=== PATIENT | male | born 1960 | race Caucasian/White ===

== ENCOUNTER 2017-09-02 16:48 | Inpatient (IN) | payer OTHER ==
[~2017-09-02] VITALS: Ht 182.9 cm; Wt 96.2 kg
[2017-09-02 00:15] VITALS: BP 148/86
[2017-09-02 10:20] VITALS: BP 203/120
[2017-09-02 11:00] VITALS: BP 185/112
--- NOTE | 2017-09-02 16:48 | NUR ---
SENT FROM URGENT CARE C/O DIFFUSE ABDOMINAL PAIN 8-10 DAYS, ALSO C/O HYPERTENSION PLACED ON MONITOR. AWAITING MD ORDER
--- NOTE | 2017-09-02 17:00 | NUR ---
LAC #18 IV ACCESS BLOOD SAMPLE COLLECTED SENT TO LAB
[2017-09-02] MEDS ORDERED: MORPHINE SULFATE INJ 2 MG/ML DISP.SYRIN IM ONE (17:30)
[2017-09-02] MEDS ORDERED: ONDANSETRON HCL 4 MG/5 ML SOLUTION PO ONE (17:30)
[2017-09-02 17:56] LABS: CALCIUM, SERUM 9.3 mg/dL (8.5-10.1); CREATININE 1.1 mg/dL (0.6-1.3); POTASSIUM 2.9 mmol/L (3.5-5.1)
[2017-09-02] MEDS ORDERED: MORPHINE SULFATE INJ 2 MG/ML DISP.SYRIN IV ONE (18:00)
[2017-09-02] MEDS ORDERED: ONDANSETRON HCL/PF 4 MG/2 ML VIAL IV ONE (18:00)
[2017-09-02 18:02] LABS: BILIRUBIN,DIRECT 0.1 mg/dL (0.0-0.2); BILIRUBIN,TOTAL 0.7 mg/dL (0.2-1.0); TOTAL PROTEIN, SERUM 7.5 g/dL (6.4-8.2)
[2017-09-02 18:04] LABS: TROPONIN I 0.022 ng/mL (0.00-0.056)
--- NOTE | 2017-09-02 18:04 | NUR ---
URINE SAMPLE COLLECTED SENT TO LAB
[2017-09-02] MEDS ORDERED: IOHEXOL-300 100 ML VIAL IV ONE (18:06)
[2017-09-02 18:07] LABS: APPEARANCE,URINE Clear (CLEAR); BILIRUBIN,URINE Negative (NEGATIVE); BLOOD, URINE Trace-lysed Ery/uL (NEGATIVE); COLOR,URINE Yellow (YELLOW); KETONES,URINE 15 (NEGATIVE); LEUKOCYTE ESTERASE ,URINE Negative (NEGATIVE); NITRITE, URINE Negative (NEGATIVE); PROTEIN,URINE 100 mg/dl (NEGATIVE); UGLUCOSE 500 MG/DL mg/dL (NEGATIVE); UROBILINOGEN,URINE 0.2 EU/dL (0.2)
--- NOTE | 2017-09-02 18:08 | NUR ---
PT TAKEN TO CT
[2017-09-02 18:10] LABS: BASOPHILS # (AUTO) 0.1 /CMM (0.0-0.2); BASOPHILS % (AUTO) 0.6 % (0.0-2.0); HEMATOCRIT 46 % (39-51); HEMOGLOBIN 15.6 g/dL (13.5-17.5); LYMPHOCYTES # (AUTO) 0.9 /CMM (0.8-4.8); LYMPHOCYTES % (AUTO) 6.9 % (20.0-44.0); MEAN CORPUSCULAR HGB CONC 34 g/dl (31.0-36.0); MEAN CORPUSCULAR VOLUME 86 fL (80-96); MONOCYTES # (AUTO) 0.9 /CMM (0.1-1.30); MONOCYTES % (AUTO) 6.8 % (2.0-12.0); NEUTROPHILS # (AUTO) 10.8 /CMM (1.8-8.9); NEUTROPHILS % (AUTO) 85.7 % (43.0-81.0); PLATELET COUNT (AUTO) 298 /CMM (150-450); RDW COEFFICIENT OF VARIATION 12.9 (11.5-15.0); RED BLOOD CELL COUNT(AUTO) 5.36 MIL/uL (4.5-6.0); WHITE BLOOD COUNT (AUTO) 12.7 K/uL (4.3-11.0)
[2017-09-02] MEDS ORDERED: ONDANSETRON HCL/PF 4 MG/2 ML VIAL ONE (18:17)
[2017-09-02] MEDS ORDERED: IOHEXOL-350 100 ML VIAL IV ONE (18:18)
[2017-09-02] MEDS ORDERED: MORPHINE SULFATE INJ 4 MG/ML DISP.SYRIN ONE (18:18)
[2017-09-02 18:23] LABS: INR 0.95 (0.85-1.15)
[2017-09-02 18:24] LABS: SQUAMOUS EPITHELIAL CELL,UR Few /HPF (None Seen)
[2017-09-02 18:25] LABS: BACTERIA,URINE Few /HPF (None Seen)
[2017-09-02] MEDS ORDERED: POTASSIUM CHLORIDE 20 MEQ TAB.PRT.SR PO ONE ×2 (18:59→19:00)
[2017-09-02] MEDS ORDERED: IV NS 0.9% 1,000 ML BAG IV ONE (19:00)
[2017-09-02] MEDS ORDERED: CLONIDINE HCL 0.1 MG TABLET ONE ×2 (19:17→22:42)
--- NOTE | 2017-09-02 19:26 | NUR ---
GAVE REPORT TO WEI FOR ALAN
[2017-09-02] MEDS ORDERED: CLONIDINE HCL 0.1 MG TABLET PO ONE (19:30)
[2017-09-02] MEDS ORDERED: lisinopril PO (19:56)
[2017-09-02] MEDS ORDERED: CLON0.1T PO (19:56)
[2017-09-02] MEDS ORDERED: metformin PO (19:56)
--- NOTE | 2017-09-02 20:11 | NUR ---
CALLED PHARMACY RE: MEDICATION ORDERED. PHARMACY TO BRING IT BACK.
--- NOTE | 2017-09-02 20:15 | NUR ---
RECEIVED A CALL FROM [facility]'S ELECTRICAL CONTROLS TECHNICIAN JEAN MARIE. FAXED OVER FACESHEET AND CLINICALS TO [phone].
[2017-09-02] MEDS ORDERED: HYDROMORPHONE INJ 2 MG/ML DISP.SYRIN ONE ×3 (20:16→22:45)
[2017-09-02] MEDS: LISINOPRIL (20MG) 20 MG TABLET PO SCH ×2 (20:30→20:35)
[2017-09-02] MEDS ORDERED: HYDROMORPHONE INJ 0.5 MG/0.5 ML SYRINGE IV ONE ×2 (20:30→22:00)
--- NOTE | 2017-09-02 20:59 | NUR ---
PT WAS PLACED ON 2L O2 VIA NC PT'S O2 SAT WAS 88%. PT IS NOW 94%.
--- NOTE | 2017-09-02 21:20 | NUR ---
RECEIVED A CALL FROM [facility] COVER REMOVER JEAN MARIE AND WAS INFORMED THAT THEIR MD, DR FREDERICK, DEEMED THE PT UNSTABLE AND HAS ALLOWED US TO ADMIT HERE. AUTHORIZATION #: [id number]
--- NOTE | 2017-09-02 21:24 | NUR ---
CALLED NURSING TELESALES CONSULTANT AND REQUESTED A MED SURG BED.
--- NOTE | 2017-09-02 21:24 | NUR ---
PAGED GI SHOW HOST/HOSTESS, DR HUMPHREY.
--- NOTE | 2017-09-02 21:47 | NUR ---
CALLING REPORT TO TELE NURSE. NURSE NOT ASSIGNED YET.
--- NOTE | 2017-09-02 21:47 | NUR ---
ASSIGNED TO MED SURG RM#: [id number], DX: SIGMOID VOLVULUS, ACCEPTING MD: DR CALERO
--- NOTE | 2017-09-02 21:57 | NUR ---
PT WAS C/O PAIN AND REC'D DILAUDID 1MG IVP BY BERTHA TELLO
--- NOTE | 2017-09-02 21:59 | NUR ---
CALLING REPORT TO BERTHA KRUEGER
--- NOTE | 2017-09-02 22:20 | NUR ---
ADMISSION NOTES: RECEIVED REPORT FROM WEI STONE, PT COMING IN FOR ABDOMINAL PAIN, WILL BE ADMITTED FOR SIGMOID VOLVULUS,UNDER DOCTOR HUMPHREY CALERO. PT BROUGHT TO THE UNIT VIA GURNEY, PT AMBULATORY, ON 2L OXYGEN VIA NC, RESPIRATION EVEN AND UNLABORED. PT STILL COMPLAINING OF 9/10 ABDOMINAL PAIN, AND NOTED BP TO BE ELEVATED. PT HAS LEFT AC G 18, ON HL, PATENT AND FLUSHING WELL. PT WILL UNDERGO FOR PROCEDURE PER GI DR HUMPHREY. ORIENTED PT TO UNIT POLICY AND HOURLY ROUNDING. VS TAKEN AND RECORDED. SKIN ASSESSMENT PERFORMED, AND NO SKIN ISSUES NOTED. INVENTORY OF BELONGINGS COMPLETED BY NATHANAEL PHAN. INFORMED PT ABOUT PROCEDURE RECOMMENDED BY , AND PT AGREE, PT MAKE DECISIONS FOR HIMSELF. SAFETY PRECAUTIONS FOR FALL INITIATED, CALL LIGHT IN REACH. WILL PREPARE PT FOR GI PROCEDURE.
--- NOTE | 2017-09-02 22:20 | NUR ---
DR. ARREGUIN WAS AT THE BEDSIDE AND IS NOW SPEAKING TO THE NURSING BRAKE LINING FINISHER ASBESTOS.
--- NOTE | 2017-09-02 22:25 | NUR ---
ADMITTING DR. CALERO. ORDERS IN CHART.
[2017-09-02 22:30] VITALS: BP 203/120
--- NOTE | 2017-09-02 22:30 | NUR ---
RN NOTES: PT WILL BE GOING FOR COLONOSCOPY AND POSSIBLE DECOMPRESSION, PT'S LAST MEAL WAS ON TUESDAY AT 0100PM, 09/01/17, PT CLAIMED HE ONLY HAD BP MEDS AND WATER DOWN IN ER, GI MD IN THE UNIT MADE AWARE OF PT'S LAST INTAKE, PER MD ITS OKAY. CONSENT SECURED, PT SIGNED THE PROCEDURE AND ANESTHESIA CONSENT, PT MAKE DECISION FOR HIMSELF.
--- NOTE | 2017-09-02 22:35 | NUR ---
RN NOTES: ASSISTED PT TO TE BATHROOM, PT URINATED.
--- NOTE | 2017-09-02 22:52 | NUR ---
PRN DILAUDID: PT C/O 11/28 ABDOMINAL PAIN STATED IT HURTS SO MUCH, PT'S BLOOD PRESSURE IS ELEVATED DESPITE GIVING BP MEDICATION, BP IS 203/118, GI MD IN THE UNIT, RELAYED THE CONDITION OF THE PT PT WILL BE GOING TO GI FOR COLONOSCOPY, PER GI MD RECOMMENDS TO GIVE PAIN MEDICATION NOW, AND THE BP WILL BE TAKEN CARE OF IN OR PT WILL BE PUT TO ANESTHESIA. PRN DILAUDID 1MG IVP ADMINISTERED TO THE PT AT THIS TIME.
[2017-09-02 23:00] VITALS: BP 185/112
[2017-09-02] MEDS ORDERED: HYDROMORPHONE INJ 2 MG/ML DISP.SYRIN IV PRN (23:00)
[2017-09-02] MEDS ORDERED: HYDROMORPHONE 1 MG/1 ML DISP.SYRIN IV PRN (23:00)
--- NOTE | 2017-09-02 23:00 | NUR ---
RN NOTES: TAKE PT DOWN TO GI LAB FOR COLONOSCOPY AND DECOMPRESSION,ACCOMPANIED BY ANOTHER RN AND INTRANET SPECIALIST, WITH GI MD. REPORT HANDED TO OR TECH. PT A/O X4, ON RA RESPIRATION EVEN AND UNLABORED, STILL C/O PAIN IN HIS ABDOMINAL AREA, MID.
[2017-09-02] MEDS ORDERED: ANESTHESIA TRAY IN PYXIS 1 EA TRAY MC ONE (23:01)
--- NOTE | 2017-09-02 23:45 | NUR ---
EXPLANATION FOR LATE ENTRY FOR DILAUDID ADMINISTRATION ALTHOUGH THIS MEDICINE WAS GIVEN AT 2252: PRN DILAUDID 1MG IVP ORDERED FOR PAIN PAIN MANAGEMENT, THIS MEDICATION WAS ADMINISTERED AT 2252 09/02/17,PT C/O 11/28 ABDOMINAL PAIN,AND STATED HE'S IN SO MUCH PAIN, GI MD IN THE UNIT RELAYED ABOUT CONDITION THIS PT IS GOING FOR OR/GI SOON FOR EMERGENCY COLONOSCOPY, AND PT'S BP ALSO ELEVATED, PER GI RECOMMENDATION TO GIVE DILAUDID NOW, AND THEY WILL TAKE CARE OF THE BP LATER WHEN PT ON ANESTHESIA. PT WAS SCANNED, AND MEDICATION WAS SCANNED, MEDICINE WAS GIVEN, EVEN FILLED UP PAIN ASSESSMENT, AND SAVED IT, FOR SOME REASON,ITS NOT DOCUMENTED IN EMAR, SO I PERSONALLY CONTACTED PHARMACY MOLD MAKING PLASTICS SHEETS SUPERVISOR, AND INFORMED ABOUT WHAT HAPPENED, ALL AROUND PRESSER ALSO AWARE OF WHAT HAPPENED, ALSO PER PHARMACY MOLD MAKING PLASTICS SHEETS SUPERVISOR, GIG, SHE STATED, SHE DOESN'T KNOW HOW TO FIX IT, PER RECOMMENDATION OF 8TH GRADE TEACHER GIL, TO PUT ANOTHER ORDER FOR DILAUDID, AND MAKE A LATE ENTRY AND SPECIFY THE REASON WHY ITS A LATE ENTRY. BUT OVERALL, PT RECEIVED THE MEDICINE AT 2252, FOR HIS COMPLAIN OF ABDOMINAL PAIN 11/28.
[2017-09-02 23:59] VITALS: BP 144/85
[2017-09-03] VITALS (14 sets, daily range): BP systolic 124–163; BP diastolic 66–92
[2017-09-03] MEDS ORDERED: DEXTROSE 50%-WATER 50 ML DISP.SYRIN IV PRN
[2017-09-03] MEDS ORDERED: LORAZEPAM INJ 2 MG/ML VIAL IV PRN
[2017-09-03] MEDS ORDERED: CLONIDINE HCL 0.1 MG TABLET PO PRN
[2017-09-03] MEDS ORDERED: HYDROMORPHONE INJ 2 MG/ML DISP.SYRIN IV PRN
[2017-09-03] MEDS ORDERED: ONDANSETRON HCL/PF 4 MG/2 ML VIAL IV PRN
--- NOTE | 2017-09-03 | NUR ---
RN NOTES: PT BROUGHT BACK TO THE UNIT VIA BED, ACCOMPANIED BY OR PERSONNEL LELO ROBERTSON. SHE EXPLAINED THAT PT WAS GIVEN PROPOFOL AND NOW ON 3L OXYGEN VIA NC, RESPIRATION EVEN AND UNLABORED, VS WILL BE TAKEN [id number], PT HAS RECTAL TUBE AND PER DR HUMPHREY TO LEAVE THE TUBE IT IS, AND DO NOT CONNECT TO ANY DRAINAGE BAG, JUST LEAVE IT TO GRAVITY. PT STATED HE'S PAIN IS A LOT BETTER NOW, ALSO BP A LOT BETTER, PLEASE SEE VS LOG, PER GI TO KEEP PT NPO UNTIL HE SEE THE PT IN AM. PT ALSO ON NS 750 LEFT IN THE BAG, 250 WAS GIVEN IN GI LAB. SAFETY PRECAUTIONS FOR FALL INITIATED, CALL LIGHT IN REACH, WILL CONTINUE TO MONITOR PT.
--- NOTE | 2017-09-03 00:05 | NUR ---
RN NOTES: ABDOMEN SOFT TO TOUCH NOW, HYPOACTIVE BOWEL SOUND HEARD UPON AUSCULTATION OF THE ABDOMEN, ABDOMINAL DISTENTION RESOLVED AFTER COLONOSCOPY AND RECTAL TUBE PLACEMENT
--- NOTE | 2017-09-03 00:10 | NUR ---
RN NOTES: PLACED PT ON CONTINUOS PULSE OX MONITORING, SPO2 96% ON 2.5L NC
[2017-09-03] MEDS: BLOOD SUGAR DIAGNOSTIC 1 EACH STRIP IN SCH ×4 (00:26→17:43)
--- NOTE | 2017-09-03 00:26 | NUR ---
PT BS IS 241 . NO COVERAGE AT THIS TIME SINCE PT ON NPO
--- NOTE | 2017-09-03 00:30 | NUR ---
RN NOTES: PT STATED HE HAS THE URGE TO PEE BUT NO URINE COMING OUT, INFORMED PT THIS MAY BE RELATED TO THE ANESTHESIA, STILL HAS EFFECT SINCE HE JUST HAD THE PROCEDURE AND JUST GOT BACK TO THE UNIT NOT TOO LONG AGO, NO ABDOMINAL DISTENTION NOTED, WILL CONTINUE MONITORING UO. ALSO PT C/O OF DRY MOUTH WHICH IS NORMAL SIDE EFFECT OF ANESTHESIA AND MEDICATIONS, PT IS NPO, PROVIDED WATER TO GURGLE AND SPIT OUT, PT STATE IT HELPED A LOT
[2017-09-03] MEDS: INSULIN REGULAR, HUMAN 100 UNIT/ML 3 ML VIAL SQ PRN ×3 (00:33→18:22)
--- NOTE | 2017-09-03 00:35 | NUR ---
RN NOTES: PER PROTOCOL WILL DO VS [id number] X1HR, THEN [id number] X2HR, THEN EVERY HOUR X4HRS, THEN ROUTINE
[2017-09-03] MEDS ORDERED: POTASSIUM CHLORIDE 10 MEQ/50 ML PREMIXED IVPB FOR PERIPHERAL LINE IV ONE (01:00)
--- NOTE | 2017-09-03 01:12 | NUR ---
RN NOTES FOR KCL REPLACEMENT THRU IV: ORDER IS TO GIVE 40MEQ KCL, 4BAG RECEIVED FROM OMNICELL, WILL ADMINISTER 1 BAG OF KCL AT 50ML/HR X1HR, EACH BAG FOR REPLACEMENT.
[2017-09-03] MEDS ORDERED: IV PREMIX 0.45% NS + KCL 1,000 ML IV ONE (01:41)
--- NOTE | 2017-09-03 02:03 | NUR ---
2ND BAG KCL: 2ND BAG OF POTASSIUM REPLACEMENT ADMINISTERED AT THIS TIME.
--- NOTE | 2017-09-03 02:30 | NUR ---
PT URINATED 250 ML USING URINAL, NO DYSURIA, DENIES ANY ABDOMINAL PAIN
--- NOTE | 2017-09-03 03:11 | NUR ---
3RD BAG OF KCL: ADMINISTERED 3RD BAG OF KCL AT THIS TIME
--- NOTE | 2017-09-03 03:30 | NUR ---
PT WITH NO C/O PAIN OR DISCOMFORT AT THIS TIME.
--- NOTE | 2017-09-03 04:12 | NUR ---
4TH BAG OF KCL REPLACEMENT: 4TH BAG OF KCL REPLACEMENT ADMINISTERED AT THIS TIME.
--- NOTE | 2017-09-03 05:26 | NUR ---
ADMINISTRATION OF IVF 1/2 NS +20MEQ KCL: NEW ORDER, OVERRIDE BY RN MAINTENANCE CARPENTER, UPON SCANNING, IOT SHOWS UNKNOWN NDC NUMBER, 5RIGHTS VERIFIED, ADMINISTERED THIS IVF NOW THAT KCL REPLACEMENT IS COMPLETED.
--- NOTE | 2017-09-03 05:34 | NUR ---
BS 182: BS 182, NO INSULIN GIVEN PT ON NPO,
[2017-09-03 06:33] LABS: BASOPHILS % (AUTO) 0.3 % (0.0-2.0); EOSINOPHILS % (AUTO) 0.1 % (0.0-6.0); HEMATOCRIT 39 % (39-51); HEMOGLOBIN 13.3 g/dL (13.5-17.5); LYMPHOCYTES # (AUTO) 1.7 /CMM (0.8-4.8); LYMPHOCYTES % (AUTO) 16.4 % (20.0-44.0); MEAN CORPUSCULAR HGB CONC 34 g/dl (31.0-36.0); MEAN CORPUSCULAR VOLUME 90 fL (80-96); MONOCYTES # (AUTO) 0.9 /CMM (0.1-1.30); MONOCYTES % (AUTO) 8.9 % (2.0-12.0); NEUTROPHILS # (AUTO) 7.7 /CMM (1.8-8.9); NEUTROPHILS % (AUTO) 74.3 % (43.0-81.0); PLATELET COUNT (AUTO) 247 /CMM (150-450); RDW COEFFICIENT OF VARIATION 14.2 (11.5-15.0); WHITE BLOOD COUNT (AUTO) 10.3 K/uL (4.3-11.0)
--- NOTE | 2017-09-03 06:45 | NUR ---
RN CLOSING NOTES: PT IN BED, AWAKE, A/O X3 FORGETFUL, ON 2L NC RESPIRATION EVEN AND UNLABORED, DENIES ANY PAIN OR DISCOMFORT AT THIS TIME, IV ACCESS PATENT AND FLUSHING WELL, INFUSING WITH 1/2 NS +20MEQ KCL AT 100ML/HR. RECTAL TUBE REMAINS IN PLACED, VIA GRAVITY ONLY. PT REMAINS NPO EXCEPT MEDS UNTIL SEEN BY GI TODAY. ON CONTINUOUS PULSE OXIMETER SPO2 RANGING 95%. VS REMAINS STABLE, NEEDS ATTENDED. WILL ENDORSE TO DAY RN FOR CONTINUITY OF CARE.
[2017-09-03 07:08] LABS: ALBUMIN 3.2 g/dL (3.4-5.0); BILIRUBIN,TOTAL 0.5 mg/dL (0.2-1.0); CALCIUM, SERUM 8.2 mg/dL (8.5-10.1); CREATININE 1.2 mg/dL (0.6-1.3); MAGNESIUM 2.4 mg/dL (1.8-2.4); PHOSPHORUS 4.5 mg/dL (2.5-4.9); POTASSIUM 3.7 mmol/L (3.5-5.1)
[2017-09-03] MEDS ORDERED: LISI40TA4 PO (07:08)
[2017-09-03] MEDS ORDERED: TAMS0.4C34 PO (07:08)
[2017-09-03] MEDS ORDERED: AMLO10TA6 PO (07:08)
[2017-09-03] MEDS ORDERED: METF-442 PO (07:08)
[2017-09-03] MEDS ORDERED: LISINOPRIL (20MG) 20 MG TABLET PO SCH (09:00)
--- NOTE | 2017-09-03 10:00 | NUR ---
MD IN AND RECTAL TUBE REMOVED.
[2017-09-03] MEDS ORDERED: AMLODIPINE BESYLATE 5 MG TABLET PO SCH (10:30)
[2017-09-03] MEDS ORDERED: PIPERACILLIN /TAZOBACTAM 3.375 G in IV D5W 100 ML IV SCH (11:00)
[2017-09-03] MEDS: PIPERACILLIN /TAZOBACTAM 3.375 G in IV D5W 50 ML IV SCH ×2 (11:59→17:52)
[2017-09-03] MEDS ORDERED: POLYETHYLENE GLYCOL 3350 17 GM POWD.PACK PO SCH (16:00)
--- NOTE | 2017-09-03 18:00 | NUR ---
DR. CALERO,DR. HUMPHREY IN DC ORDER GIVEN.DENIES PAIN,GIVEN ALL INSTRUCTIONS,HEP LOCK OUT. PRIOR TO DC HAD DOSE OF MIRALAX. AWARE TO RESTART HOME MEDS.HAD 3 BMS THIS SHIFT.
--- NOTE | 2017-09-03 19:00 | NUR ---
TAKEN TO LOBBY FOR DC PT. TO DRIVE HIMSELF HOME.DR. ABDIAS CALDWELL.
== END 2017-09-03 19:00 | disposition home or self-care (01) | DRG 346 ==
LOC: ER 16:49 → MED 22:05
PROVIDERS: ADMIT Internal Medicine; ATTEND Internal Medicine
PROC: 0D9N8ZZ Drainage of Sigmoid Colon, Via Natural or Artificial Opening Endoscopic (ICD-10-PCS; principal; 2017-09-02 23:17)
DX: K56.2 Volvulus (principal); K52.9 Noninfective gastroenteritis and colitis, unspecified; I10 Essential (primary) hypertension; E11.9 Type 2 diabetes mellitus without complications; Z79.84 Long term (current) use of oral hypoglycemic drugs; K42.9 Umbilical hernia without obstruction or gangrene; K59.00 Constipation, unspecified
CPT/HCPCS: 36415; 74018; 80048-TC; 80053-TC; 80076-TC; 81000-TC; 82962-TC; 83605-TC; 83690-TC; 83735-TC; 84100-TC; 84484-TC; 85025-TC; 85730-TC; 87081-TC; A4606; J1170; J1815; J2270; J2405; J2543; J2704; J3480; J3490; J7030; J7060; Q9967; Z7610

== ENCOUNTER 2018-01-09 12:29 | Inpatient (IN) | payer OTHER ==
[~2018-01-09] VITALS: Ht 182.9 cm; Wt 99.3 kg
[~2018-01-09 12:29] MED LIST: AMLO10TA6 PO; CLON0.1T PO; LISI40TA4 PO; METF-442 PO; TAMS0.4C34 PO
--- NOTE | 2018-01-09 12:30 | NUR ---
57 YEAR OLD MALE C/O WORSENING LOWER ABDOMINAL PAIN X 2 DAYS/ ALERT AND ORIENTED X4. BREATHING EVEN AND UNALBORED WITH NO DISTRESS NOTED. SKIN WARM TO TOUCH AND INTACT. PATIENT IS ABLE TO AMBULATE. AWAITING TO BE SEEN BY
[2018-01-09] MEDS ORDERED: IV NS 0.9% 1,000 ML BAG IV ONE (13:00)
[2018-01-09] MEDS ORDERED: ONDANSETRON HCL/PF 4 MG/2 ML VIAL IVP ONE (13:00)
[2018-01-09] MEDS ORDERED: MORPHINE SULFATE INJ 2 MG/ML DISP.SYRIN IV ONE ×2 (13:00→18:00)
[2018-01-09] MEDS ORDERED: ONDANSETRON HCL/PF 4 MG/2 ML VIAL ONE (13:05)
[2018-01-09] MEDS ORDERED: MORPHINE SULFATE INJ 4 MG/ML DISP.SYRIN ONE ×2 (13:05→18:03)
[2018-01-09 13:09] LABS: BASOPHILS # (AUTO) 0.1 /CMM (0.0-0.2); BASOPHILS % (AUTO) 0.6 % (0.0-2.0); EOSINOPHILS % (AUTO) 0.1 % (0.0-6.0); HEMATOCRIT 49 % (39-51); HEMOGLOBIN 15.7 g/dL (13.5-17.5); LYMPHOCYTES # (AUTO) 0.4 /CMM (0.8-4.8); LYMPHOCYTES % (AUTO) 4.4 % (20.0-44.0); MEAN CORPUSCULAR HGB CONC 32 g/dl (31.0-36.0); MEAN CORPUSCULAR VOLUME 87 fL (80-96); MONOCYTES # (AUTO) 0.1 /CMM (0.1-1.30); MONOCYTES % (AUTO) 1.5 % (2.0-12.0); NEUTROPHILS # (AUTO) 9.1 /CMM (1.8-8.9); NEUTROPHILS % (AUTO) 93.4 % (43.0-81.0); PLATELET COUNT (AUTO) 319 /CMM (150-450); WHITE BLOOD COUNT (AUTO) 9.7 K/uL (4.3-11.0)
[2018-01-09 13:19] LABS: CALCIUM, SERUM 9.2 mg/dL (8.5-10.1); CREATININE 1.2 mg/dL (0.6-1.3); POTASSIUM 3.3 mmol/L (3.5-5.1)
[2018-01-09 13:23] LABS: INR 0.93 (0.85-1.15)
[2018-01-09 13:24] LABS: ALBUMIN 4.3 g/dL (3.4-5.0); BILIRUBIN,DIRECT 0.1 mg/dL (0.0-0.2); BILIRUBIN,TOTAL 0.7 mg/dL (0.2-1.0)
--- NOTE | 2018-01-09 14:00 | NUR ---
DIRECTOR INTELLIGENCE ANALYSIS PROGRAMS AT BEDSIDE TO TAKE PATIENT FOR CT SCAN
[2018-01-09] MEDS ORDERED: CT SWABBABLE VALVE TRANS SET 1 EA INFUS.SET MC ONE (14:10)
[2018-01-09] MEDS ORDERED: IOHEXOL-300 100 ML VIAL IV ONE (14:10)
[2018-01-09] MEDS ORDERED: IV NS 0.9% 250 ML IV ONE (14:10)
[2018-01-09] MEDS ORDERED: LISINOPRIL (20MG) 20 MG TABLET PO STA (14:49)
[2018-01-09] MEDS ORDERED: AMLODIPINE BESYLATE 5 MG TABLET PO ONE (15:00)
[2018-01-09] MEDS ORDERED: CLONIDINE HCL 0.1 MG TABLET PO ONE (15:00)
[2018-01-09] MEDS ORDERED: CLONIDINE HCL 0.1 MG TABLET ONE (15:01)
[2018-01-09] MEDS ORDERED: AMLODIPINE BESYLATE 5 MG TABLET ONE (15:01)
--- NOTE | 2018-01-09 15:15 | NUR ---
CALLED AND PAGED DR MCELROY, PILOT CAPTAIN SURGEON
--- NOTE | 2018-01-09 15:23 | NUR ---
CALLED AND PAGED DR HUMPHREY, MANAGING EDITOR GI
--- NOTE | 2018-01-09 18:01 | NUR ---
REPORT GIVEN TO NUHA STONE FOR TRANSPORT TO SURGERY
--- NOTE | 2018-01-09 18:11 | NUR ---
CALLED AND PAGED DR JENOG
[2018-01-09] MEDS ORDERED: FENTANYL PF 100MCG/2ML AMPUL ONE (18:26)
[2018-01-09] MEDS ORDERED: MIDAZOLAM HCL 2 MG/2ML VIAL ONE (18:27)
--- NOTE | 2018-01-09 19:40 | NUR ---
MS BIOMEDICAL MANAGER NOTES Patient came to unit via gurney from OR, S/P colonoscopy and insertion of rectal tube. As per GATE WATCH, patient tolerated the procedure well. Patient is alert, oriented x 4. Able to make needs known. Breathing even and unlabored. Not in any distress. Peripheral IV at RAC g#20 infusing PRN. Patient denies any pain. Body assessment done, no skin issues, no open wounds. Oriented to call guo. Safety precautions in place. Call guo within easy reach. Bed in low, locked position. MRSA swab done. Will continue to monitor accordingly
[2018-01-09] MEDS ORDERED: DEXTROSE 50%-WATER 50 ML DISP.SYRIN IV PRN (20:00)
[2018-01-09] MEDS ORDERED: HYDROMORPHONE INJ 2 MG/ML DISP.SYRIN IV PRN (20:00)
[2018-01-09] MEDS ORDERED: ONDANSETRON HCL/PF 4 MG/2 ML VIAL IV PRN (20:00)
[2018-01-09] MEDS ORDERED: CLONIDINE HCL 0.1 MG TABLET PO PRN (20:00)
[2018-01-09] MEDS ORDERED: INSULIN REGULAR, HUMAN 100 UNIT/ML 3 ML VIAL SQ PRN (20:00)
[2018-01-09 21:46] VITALS: BP 147/83
[2018-01-09] MEDS ORDERED: IV PREMIX 0.45% NS + KCL 1,000 ML IV ONE (22:09)
--- NOTE | 2018-01-09 23:46 | NUR ---
RN NOTES BSL checked, 206 mg/dL. 4 units of insulin given as per sliding scale. Patient had a sandwich and jelo.
[2018-01-09] MEDS: BLOOD SUGAR DIAGNOSTIC 1 EACH STRIP IN SCH (23:49)
[2018-01-10 04:00] VITALS: BP 140/76
[2018-01-10 04:01] VITALS: BP 140/76
--- NOTE | 2018-01-10 05:25 | NUR ---
RN NOTES BSL checked, 123 mg/dL. No insulin coverage as per sliding scale
[2018-01-10] MEDS: BLOOD SUGAR DIAGNOSTIC 1 EACH STRIP IN SCH ×2 (05:30→12:21)
--- NOTE | 2018-01-10 06:30 | NUR ---
MS RN CLOSING NOTES Patient sitting up in bed, watching TV. Alert, oriented x 4. Breathing even and unlabored. Not in any distress. No complaints of pain or discomfort as of this time. Peripheral IV infusing at 100mL/hr. All needs attended to. All due medications given as ordered. Safety precautions in place. Will endorse ALAN to oncoming RN.
[2018-01-10 06:42] LABS: BASOPHILS % (AUTO) 0.5 % (0.0-2.0); HEMATOCRIT 40 % (39-51); HEMOGLOBIN 13.4 g/dL (13.5-17.5); MEAN CORPUSCULAR HGB CONC 34 g/dl (31.0-36.0); MEAN CORPUSCULAR VOLUME 87 fL (80-96); MONOCYTES # (AUTO) 0.8 /CMM (0.1-1.30); MONOCYTES % (AUTO) 9.1 % (2.0-12.0); NEUTROPHILS % (AUTO) 67.4 % (43.0-81.0); PLATELET COUNT (AUTO) 249 /CMM (150-450); RED BLOOD CELL COUNT(AUTO) 4.54 MIL/uL (4.5-6.0); WHITE BLOOD COUNT (AUTO) 8.9 K/uL (4.3-11.0)
[2018-01-10 07:01] LABS: CALCIUM, SERUM 8.6 mg/dL (8.5-10.1); CREATININE 1.2 mg/dL (0.6-1.3); POTASSIUM 3.3 mmol/L (3.5-5.1)
[2018-01-10 08:00] VITALS: BP 131/77
[2018-01-10 08:07] VITALS: BP 131/77
--- NOTE | 2018-01-10 08:18 | NUR ---
FOOD PREPARER OPENING NOTES RECEIVED PATIENT IN BED A/O X3 NO SIGNS OR SYMPTOMS OF RESPIRATORY DISTRESS OR ACUTE PAIN. DR MCELROY @ BEDSIDE AND EXPLAINING POSSIBLE SURGERY 01/11. PATIENT UPGRADE TO CLEAR LIQUID DIET AND WANTS TO THINK ABOUT SURGERY. RECTAL TUBE IN PLACE IV RUNNING IN (R) A/C KCL @ 20MEQ 100ML/HR. ABLE TO MAKE NEEDS KNOWN AND ALL MET CALL LIGHT WITHIN REACH.
[2018-01-10] MEDS ORDERED: LISINOPRIL (20MG) 20 MG TABLET PO SCH (09:00)
[2018-01-10] MEDS ORDERED: AMLODIPINE BESYLATE 10 MG TABLET PO SCH (09:00)
--- NOTE | 2018-01-10 10:02 | NUR ---
MEDICAL OBSERVER NOTES REMOVED ROGERS TUBE FROM RECTUM PATIENT TO RESTROOM TO HAVE BOWEL MOVEMENT
--- NOTE | 2018-01-10 10:15 | NUR ---
RESIDENT PROGRAM SPECIALIST NOTES LEFT MESSAGE WITH DR CALERO IN REGARDS TO REMOVAL OF RECTAL TUBE PATIENT HAD 2 LARGE SOFT BOWEL MOVEMENTS AND SENT RESULTS OF ABDOMINAL XRAY
--- NOTE | 2018-01-10 12:23 | NUR ---
MEDIA ANALYST NOTES BS 135 NO COVERAGE GIVEN D/T PATIENT ON CLEAR LIQUIDS AND BEING DISCHARGED TO AVOID HYPOGLYCEMIA. DR SONALI COTTON'D FOR PATIENT TO BE DISCHARGE
--- NOTE | 2018-01-10 13:30 | NUR ---
OFFSHORE DIVER DISCHARGE NOTES ALL EDUCATION AND DISCHARGE INSTRUCTIONS GIVEN TO PATIENT . IV REMOVED FROM (R) AC ALL PHONE NUMBERS OF PHYSICIANS GIVEN TO PATIENT PER REQUEST. ESCORTED OFF UNIT BY NATHANAEL GARCIA
== END 2018-01-10 13:46 | disposition home or self-care (01) | DRG 390 ==
LOC: ER 12:34 → MEDSG1 19:17
PROVIDERS: ADMIT Internal Medicine; ATTEND Internal Medicine
PROC: 0D7N8ZZ Dilation of Sigmoid Colon, Via Natural or Artificial Opening Endoscopic (ICD-10-PCS; principal; 2018-01-09 16:20)
DX: K56.2 Volvulus (principal); I10 Essential (primary) hypertension; K64.8 Other hemorrhoids; E11.9 Type 2 diabetes mellitus without complications; Z79.84 Long term (current) use of oral hypoglycemic drugs; K42.9 Umbilical hernia without obstruction or gangrene
CPT/HCPCS: 36415; 71045-TC; 74018; 80048-TC; 80076-TC; 82962-TC; 83690-TC; 85025-TC; 85730-TC; 87081-TC; A4606; G0378; J1815; J2250; J2270; J2405; J2704; J3010; J3480; J3490; J7030; J7050; Q9967; Z7610